=== PATIENT | female | born 1995 | race Two or more races ===

== ENCOUNTER 2017-08-06 03:12 | Emergency (ER) | payer MEDICAID ==
[~2017-08-06] VITALS: Ht 165.1 cm; Wt 91.0 kg
[2017-08-06] MEDS ORDERED: PREDNISONE 20MG TABLET PO ONE (04:15)
[2017-08-06] MEDS ORDERED: DIPHENHYDRAMINE 50MG CAPSULE PO ONE (04:15)
[2017-08-06] MEDS ORDERED: FAMOTIDINE 20MG TABLET PO ONE (04:15)
[2017-08-06 06:00] VITALS: BP 124/77
== END 2017-08-06 06:39 | disposition home or self-care (01) ==
LOC: ER 03:59
DX: L50.0 Allergic urticaria (principal); T50.905A Adverse effect of unspecified drugs, medicaments and biological substances, initial encounter; Y92.89 Other specified places as the place of occurrence of the external cause; R03.0 Elevated blood-pressure reading, without diagnosis of hypertension; G40.909 Epilepsy, unspecified, not intractable, without status epilepticus
CPT/HCPCS: 81025; 99284; J7512; Q0163